=== PATIENT | female | born 1960 | race American Indian/Alaskan Native ===

== ENCOUNTER 2020-03-15 08:20 | Emergency (ER) | payer MEDICAID, MEDICARE ==
[2020-03-15 08:26] VITALS: BP 146/95
--- NOTE | 2020-03-15 08:36 | Emergency Department Report ---
Chief Complaint: Headache Stated Complaint: LFT ARM PAIN/HAND ACHE Time Seen by Provider: 03/15/20 08:31 - HPI History of Present Illness: Ms. Soares is a 59-year-old -[place] female who comes to the ER today from the longterm. She states that since she went to the longterm in December she has had left arm and neck pain. She thinks it is from the mattress that make her sleep on. She states that she is from [place] and does not have a doctor here. She states that she has no chest pain or shortness of breath. She has no fever or chills she denies trauma. She is well dressed and in no acute distress Patient does have a history of hypertension and she has her hypertensive medications here with her in the ER. - ROS Review of Systems: Left arm pain radiating from her neck no chest pain No shortness of breath No cough No fever No chills - Exam Vital Signs: Vital Signs 03/15/20 08:23 Temperature 98.2 F Pulse Rate 84 Respiratory 18 Rate Blood Pressure 146/95 O2 Sat by Pulse 100 Oximetry Physical Exam: Alert and oriented x4 moves all extremities well S1-S2 no edema ambulatory nontoxic MSE screening note: Focused history and physical exam performed. Due to findings the following was ordered: Patient has had this pain since December when she entered a longterm. It is an acute on chronic issue not requiring emergency care at this time. I explained to the patient that the local primary care urgent care as would be able to see her. At the current time she has no life-threatening medical injury and medical screening has been completed ED Disposition for MSE Disposition: DC-01 TO HOME OR SELFCARE Is pt being admited?: No Does the pt Need Aspirin: No Condition: Stable Time of Disposition: 08:36
[2020-03-15] MEDS ORDERED: IBUPROFEN 800 MG TAB PO ONE (09:09)
[2020-03-15] MEDS ORDERED: CYCLOBENZAPRINE 10 MG TAB PO ONE (09:09)
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
[2020-03-15] MEDS ORDERED: dexAMETHasone 4 MG/ML VIAL IM ONE (09:17)
== END 2020-03-15 09:45 | disposition home or self-care (01) ==
LOC: ED 08:20
DX: S16.1XXA Strain of muscle, fascia and tendon at neck level, initial encounter (principal); K21.9 Gastro-esophageal reflux disease without esophagitis; F32.9 Major depressive disorder, single episode, unspecified; I10 Essential (primary) hypertension; F17.200 Nicotine dependence, unspecified, uncomplicated; X58.XXXA Exposure to other specified factors, initial encounter; Y93.89 Activity, other specified; Y92.89 Other specified places as the place of occurrence of the external cause; Y99.8 Other external cause status
CPT/HCPCS: 96372; 99283; J1100